=== PATIENT | female | born 1955 | race Two or more races ===

== ENCOUNTER 2017-09-20 07:09 | Emergency (ER) | payer OTHER ==
[~2017-09-20] VITALS: Ht 162.6 cm; Wt 90.7 kg
[~2017-09-20 07:09] MED LIST: ASPI-862 PO; GLU500 PO; HYDR25TA4 PO; LOSA25TA3 PO; SIMV5TAB53 PO
[2017-09-20 07:19] VITALS: BP_SYST 149
[2017-09-20] MEDS ORDERED: BACITRACIN 1 GM OINT TP ONE (07:47)
[2017-09-20 08:37] VITALS: BP_SYST 131
== END 2017-09-20 08:37 | disposition home or self-care (01) ==
LOC: SED 07:09
DX: S00.81XA Abrasion of other part of head, initial encounter (principal); E11.9 Type 2 diabetes mellitus without complications; I10 Essential (primary) hypertension; E78.00 Pure hypercholesterolemia, unspecified; Z86.73 Personal history of transient ischemic attack (TIA), and cerebral infarction without residual deficits; Z79.899 Other long term (current) drug therapy; W22.01XA Walked into wall, initial encounter; Y93.89 Activity, other specified; Y92.89 Other specified places as the place of occurrence of the external cause; Y99.8 Other external cause status
CPT/HCPCS: 70450-TC; 99284

== ENCOUNTER 2020-05-12 14:36 | Emergency (ER) | payer OTHER, MEDICARE ==
[~2020-05-12] VITALS: Ht 162.6 cm; Wt 86.2 kg
[~2020-05-12 14:36] MED LIST changes: -SIMV5TAB53 PO; +SIMV5TAB59 PO
[2020-05-12 14:50] VITALS: BP_SYST 139
--- NOTE | 2020-05-12 15:03 | NUR ---
pt presents to ER with severe L lower back pain radiating to L leg 10/10,skin pink and warm,cap refill <3, VSS, respirations even and unlabored.
--- NOTE | 2020-05-12 15:04 | NUR ---
Dr CuevasL assessing patient in the triage room
[2020-05-12] MEDS ORDERED: HYDROcodone/ACETAMIN 5-325 MG TAB (NORCO/ VICODIN) PO ONE (15:15)
[2020-05-12 16:13] VITALS: BP_SYST 136
--- NOTE | 2020-05-12 16:14 | NUR ---
Patient given written and verbal discharge instructions and verbalizes understanding. ER MD discussed with patient the results and treatment provided. Patient in stable condition. ID arm band removed. Rx of flexeril and Ibuprofen given. Patient educated on pain management and to follow up with PMD. Pain Scale 3/10 tolerable for patient . Opportunity for questions provided and answered. Medication side effect fact sheet provided.
== END 2020-05-12 16:13 | disposition home or self-care (01) ==
LOC: SED 14:36
DX: M54.32 Sciatica, left side (principal); I10 Essential (primary) hypertension; E11.9 Type 2 diabetes mellitus without complications; E78.00 Pure hypercholesterolemia, unspecified; Z86.73 Personal history of transient ischemic attack (TIA), and cerebral infarction without residual deficits; Z79.899 Other long term (current) drug therapy; Z79.82 Long term (current) use of aspirin
CPT/HCPCS: 72110; 73502; 99284

== ENCOUNTER 2021-06-06 09:32 | Emergency (ER) | payer OTHER, MEDICARE ==
[~2021-06-06] VITALS: Ht 162.6 cm; Wt 79.4 kg
[~2021-06-06 09:32] MED LIST changes: +ASPI-859 PO; -ASPI-862 PO; -HYDR25TA4 PO; +LEVO75TA7 PO; -LOSA25TA3 PO; +MELO15TA13 PO; +METO25TA6 PO
[2021-06-06 09:50] VITALS: BP_SYST 154
[2021-06-06] MEDS ORDERED: LIDOCAINE 1%, 20 ML MDV 20 ML ONE (10:31)
[2021-06-06] MEDS ORDERED: KETOROLAC TROMETHAMINE 60 MG/2 ML VIAL IM ONE (11:19)
[2021-06-06] MEDS: KETOROLAC TROMETHAMINE 60 MG/2 ML VIAL IM ONE (11:21)
[2021-06-06] MEDS ORDERED: HYDR-3917 PO (11:40)
[2021-06-06 11:47] VITALS: BP_SYST 154
[2021-06-06 13:12] LABS: SOURCE/TYPE ,BODY FLUID SYNOVIAL
[2021-06-06 13:13] LABS: APPEARANCE,SPUN,BODY FLUID CLEAR (CLEAR); BF APPEARANCE UNSPUN CLOUDY (CLEAR); BODY FLUID COLOR YELLOW (LT YELLOW); BODY FLUID SOURCE/ TYPE KNEE; BODY FLUID TOTAL VOLUME 18 mL; MONOCYTES,BODY FLUID 8 %; NEUTROPHIL, BODY FLUID 92 %; RBC, BODY FLUID 420 /uL; WBC, BODY FLUID 12660 /uL
[2021-06-06 13:25] LABS: BODY FLUID CRYSTALS Ca Phyrophos - Few (None Seen)
[2021-06-06 21:35] LABS: BODY FLUID GLUCOSE 88 mg/dL; BODY FLUID TOTAL PROTEIN 3.9 g/dL
== END 2021-06-06 11:49 | disposition home or self-care (01) ==
LOC: SED 09:32
DX: M17.11 Unilateral primary osteoarthritis, right knee (principal); M25.461 Effusion, right knee; I10 Essential (primary) hypertension; E78.00 Pure hypercholesterolemia, unspecified; E11.9 Type 2 diabetes mellitus without complications; Z79.84 Long term (current) use of oral hypoglycemic drugs; Z79.899 Other long term (current) drug therapy
CPT/HCPCS: 20610; 82947; 84157; 87070; 89051 ×2; 89060; 96372; 99283; J1885; J2001